=== PATIENT | female | born 1960 | race African-American/Black ===

== ENCOUNTER 2017-07-06 08:35 | Emergency (ER) | payer OTHER ==
[2017-07-06 09:00] VITALS: BP 142/95; PULSE 80; TEMP 98.5; BMI 30.7
--- NOTE | 2017-07-06 09:37 | PDOC ---
History of Present Illness - General Chief Complaint: Cold Symptoms Stated Complaint: COUGH Time Seen by Provider: 07/06/17 09:07 History Source: Patient Exam Limitations: No Limitations - History of Present Illness Initial Comments: 07/06/17 09:39 She works at [employer], and contracted an upper respiratory illness 3-4 days ago. States started with general malaise weakness, and it progressed to a moist cough that is nonproductive, but no fever. States has mild sore throat pain and sneezing and nasal drainage that is clear. Has used [id number] medications with some mild relief. Timing/Duration: reports: getting worse Severity: reports: mild, moderate Modifying Factors: improves with: activity Associated Symptoms: reports: chest pain/soreness, cough, fever/chills, headache , nasal congestion, nasal drainage Past History - Travel Traveled outside of the country in the last 30 days: No Close contact w/someone who was outside of country & ill: No - Past Medical History Allergies/Adverse Reactions: Allergies Allergy/AdvReac Type Severity Reaction Status Date / Time No Known Allergies Allergy Verified 07/06/17 08:55 Home Medications: Ambulatory Orders Azithromycin [Zithromax -] 250 mg PO UTDICT #6 tab 07/06/17 COPD: No HTN: Yes (non compliant) - Suicide/Smoking/Psychosocial Hx Smoking History: Never smoked Have you smoked in the past 12 months: No Information on smoking cessation initiated: No Hx Alcohol Use: No Drug/Substance Use Hx: No Substance Use Type: None Review of Systems - Review of Systems Able to Perform ROS?: Yes Is the patient limited Arabic proficient: Yes Constitutional: Yes: Symptoms Reported, See HPI, Loss of Appetite, Malaise HEENTM: Yes: Symptoms Reported, See HPI, Nose Congestion, Throat Pain Respiratory: Yes: Symptoms reported, See HPI, Cough ABD/GI: No: Symptoms Reported Musculoskeletal: Yes: Symptoms Reported, See HPI Integumentary: Yes: Symptoms Reported Neurological: Yes: Symptoms reported, See HPI, Headache All Other Systems: Reviewed and Negative (unproductive) *Physical Exam - Vital Signs Last Vital Signs Temp Pulse Resp BP Pulse Ox 98.5 F 80 18 142/95 100 07/06/17 08:57 07/06/17 08:57 07/06/17 08:57 07/06/17 08:57 07/06/17 08:57 - Physical Exam General Appearance: Yes: Nourished, Appropriately Dressed, Mild Distress HEENT: positive: EOMI, Normal ENT Inspection, TMs Normal (congested but landmarks easily visualized), Pharynx Normal, Rhinorrhea (clear), Sinus Tenderness Neck: positive: Supple. negative: Tender Respiratory/Chest: positive: Lungs Clear, Normal Breath Sounds. negative: Rhonchi, Wheezing Gastrointestinal/Abdominal: positive: Normal Bowel Sounds, Soft. negative: Tender Musculoskeletal: positive: Normal Inspection Extremity: positive: Normal Capillary Refill, Normal Inspection Integumentary: positive: Normal Color, Dry, Warm, Pale Neurologic: positive: lithograph press feeder II-XII NML intact, Fully Oriented, Alert, Normal Mood/ Affect, Normal Response *DC/Admit/Observation/Transfer Diagnosis at time of Disposition: Upper respiratory infection, viral - Discharge Dispostion Disposition: HOME Condition at time of disposition: Stable Admit: No - Prescriptions Prescriptions: Azithromycin [Zithromax -] 250 mg PO UTDICT #6 tab - Referrals - Patient Instructions Printed Discharge Instructions: DI for Viral Upper Respiratory Infection -- Adult Additional Instructions: Rest, drink lots of fluids: Teas, water, soups, Pedialyte Saltwater gargles Steamy showers/seem to face break up mucus Avoid contact with others until fevers and cough resolved Lots of handwashing and good hygiene Continue [id number] medications for symptomatic relief Tylenol or Motrin for fever and pain Start Zithromax for fevers greater than 101, phlegm production of yellow-green, purulent nasal drainage, or worsening of symptoms. Followup with private physician in one to 2 days as needed Return to emergency department for worsened symptoms, fevers, dehydration - Post Discharge Activity Forms/Work/School Notes: Back to Work
== END 2017-07-06 09:47 | disposition home or self-care (01) ==
LOC: JERFT 08:35
DX: J06.9 Acute upper respiratory infection, unspecified (principal); B97.89 Other viral agents as the cause of diseases classified elsewhere; I10 Essential (primary) hypertension; Z91.14 Patient's other noncompliance with medication regimen
CPT/HCPCS: 99281-25